=== PATIENT | female | born 1995 | race African-American/Black ===

== ENCOUNTER 2019-01-13 05:09 | Inpatient (IN) | payer OTHER ==
[2019-01-13] MEDS ORDERED: LR 1,000 ML IV PRN (05:27)
[2019-01-13] MEDS ORDERED: hydrALAZINE 20 MG/ML VIAL IVP ONE ×3 (05:44→06:25)
[2019-01-13] MEDS ORDERED: CALCIUM GLUC 10% 1 GM/10 ML VIAL IVP PRN (05:45)
[2019-01-13] MEDS ORDERED: MAGNESIUM SULF 4 GM/WATER 100 ML IV ONE (05:45)
[2019-01-13 05:54] LABS: PLATELET COUNT 196 10^3/uL (150-400)
[2019-01-13] MEDS: Mag Sulf 500 ML IV SCH ×2 (07:15→17:14)
--- NOTE | 2019-01-13 07:15 | GHP ---
[f rep st] HISTORY AND PHYSICAL DATE OF ADMISSION: 01/13/2019 ADMITTING DIAGNOSES: 1. Status post late gestation 30-week . 2. preeclampsia. HISTORY OF PRESENT ILLNESS: The patient is a 23-year-old, G2, P-0-0-1-0 at 30 weeks by ultrasound, who presents from Dr. Todd's and Dr. Farias's office status post late gestation . The patient and her boyfriend flew in from [place] about 3 days ago. The patient underwent standard procedure and received digoxin 2.5 mg, injected directly into pericardia via ultrasound 2 days ago, and then had a #10 laminaria placed followed by five #10 laminarias yesterday. Spontaneous rupture of membranes occurred around 1514 on January 12. Patient was given nifedipine for tocolysis, but progressed to 6 cm and then 10 cm early this morning. The procedure was done under a pudendal block with both sharp curettage and suction under ultrasound guidance revealing a thin stripe at the end of the procedure which was around 0221 this morning. There was minimal blood loss per Dr. Farias who estimated an EBL of 50 cc. Patient is O positive and hematocrit was 38.4. Patient then developed an elevated blood pressure 185/120 post-procedure around 0440. Patient was given oral Labetalol 200 mg. Patient was taken to the hospital by Dr. Farias in his personal vehicle and was brought up here to Labor and Delivery for treatment of preeclampsia. Patient states she has a headache, mild 5/10 and thinks it is mostly due to crying. She declines Tylenol at this time. She denies any visual changes or epigastric/ right upper quadrant pain. Patient states minimal bleeding at this time and denies any cramping or pain. The plan was for patient to fly back to [place] tomorrow with prescriptions for both Flagyl and Cipro for 5 days after the procedure. The patient's boyfriend-David is present with her at this time. PAST OB HISTORY: Prior therapeutic in the 1st trimester. PAST GRANULATOR HISTORY: Age of menarche was 14. Cycles were regular. Patient denies a history of abnormal Pap smears or any exposure to STDs. PAST MEDICAL HISTORY: Remarkable for asthma. PAST SURGICAL HISTORY: Therapeutic . CURRENT MEDICATIONS: Albuterol inhaler, Flagyl, Labetalol, and Zofran. ALLERGIES: No known drug allergies. FAMILY HISTORY: Unremarkable. SOCIAL HISTORY: Patient is here for a late termination from [place] and presents with her boyfriend. Patient denies currently any tobacco, alcohol, illicit drug use. REVIEW OF SYSTEMS: Ten point review of systems negative. Pertinent positives noted in HPI. PHYSICAL EXAMINATION: On admission, blood pressure is 149/83. They were checked serially every 10 minutes and found to be 166/128, 172/125, 169/110, and 168/109. Patient is afebrile. GENERAL: Patient is a well-nourished, well- developed female, alert and oriented x3. No apparent distress. SKIN: Warm, dry without rash. NEURO: Grossly intact. CARDIOVASCULAR: Regular rate and rhythm. LUNGS: Clear to auscultation bilaterally. ABDOMEN: Soft, nontender. Fundus firm 2 below the umbilicus. PELVIC: Minimal bleeding noted. EXTREMITIES: Normal to inspection with no calf tenderness or edema and +1 reflexes bilaterally without clonus. ASSESSMENT/PLAN: Patient is a 23-year-old, G2, P-0-0-1-0, status post late 30- week with preeclampsia 1. Admit to Labor and Delivery. 2. Will check PIH labs. 3. Patient was given 5 mg of hydralazine with a repeat blood pressure 20 minutes later of 160/110. Patient then received 10 mg of IV hydralazine and blood pressures now stable. 4. Avoided Labetalol at this time because patient is asthmatic. Patient was given 200 mg oral labetalol before coming into the hospital by Dr. Farias. 5. Will start magnesium sulfate for seizure prophylaxis; start with 4 g loading dose and then 2 g maintenance. 6. Keep IV fluids at 125 cc an hour. Patient may have 50 cc an hour of ice chips. 7. Strict I's and O's with Amaya catheter. 8. Will continue Flagyl and Cipro per Dr. Farias. /[id number]/MODL MTDD
[2019-01-13] MEDS ORDERED: ALBUTEROL 60 PUFFS/8 GM MDI IH PRN (07:59)
[2019-01-13] MEDS: metroNIDAZOLE 500 MG TAB PO SCH ×2 (09:26→21:09)
[2019-01-13] MEDS: DOCUSATE SODIUM 100 MG CAP PO PRN (09:26)
[2019-01-13] MEDS: CIPROFLOXACIN 500 MG TAB PO SCH ×2 (10:12→20:05)
--- NOTE | 2019-01-13 10:30 | PDMN ---
Medical Necessity Medical necessity: Pt meets inpt criteria per MD order and [facility] [id number], Hypertensive Disorders of . 23 y/o presenting s/p late gestation w/elev BP 185/120 post-procedure and headache, admitted w/ preeclampsia, admit to L&D for close monitoring of BP, mag sulfate gtt, IVF, est LOS>2MN for management of above.
--- NOTE | 2019-01-13 11:34 | OBPP ---
Progress Note Assessment/Plan: Assessment: Post D&E from 30 wks TAB completed 02:20 this am post procedure preeclampsia with severe range HTN now stable on magnesium ( required 2 doses IV hydralazine initially on admit to stabilize) labs normal, P:C ratio .32 asymptomatic o/t mild headache - declines tylenol bleeding minimal Asthma - prn albuterol Plan: on restricted IV/po fluids to 120ml/hr UOP maintaining adeq >60cc/hr 01/13/19 11:29 Subjective/ Course: 01/13/19 11:34 Pt sleeping - easily arousable and reporting mild headache - declines tylenol. No cramping - no nausea/ óscar sips of water. partner asleep on couch. Objective: 01/13/19 05:30 01/13/19 05:30 Patient ABO/Rh O POSITIVE 01/13/19 05:30 Uric Acid 5.4 mg/dL (2.5-6.8) 01/13/19 05:30 Total Bilirubin 0.5 mg/dL (0.1-1.4) 01/13/19 05:30 Conjugated Bilirubin 0.3 mg/dL (0.0-0.5) 01/13/19 05:30 Unconjugated Bilirubin 0.2 mg/dL (0.0-1.1) 01/13/19 05:30 AST 33 IU/L (14-46) 01/13/19 05:30 ALT 19 IU/L (9-52) 01/13/19 05:30 Lactate Dehydrogenase 747 IU/L (313-618) H 01/13/19 05:30 Temp Pulse Resp BP Pulse Ox 37.1 C 75 16 123/73 H 94 01/13/19 09:15 01/13/19 06:20 01/13/19 09:15 01/13/19 10:00 01/13/19 10:00 Uterine Position/Fundal Height: Umbilicus -2 Uterine Tone: Firm Physical Exam - Physical Exam Abdomen: non-tender, soft, other (FF at umb -2, scant lochia) Extremities: non-tender, pedal edema (minimal), other (no DTRs, only 1+ prior to magnesium) Skin: normal color, warm/dry
[2019-01-13] MEDS: ACETAMINOPHEN 325 MG TAB PO PRN (14:05)
[2019-01-14] MEDS: ACETAMINOPHEN 325 MG TAB PO PRN (02:36)
[2019-01-14] MEDS: Mag Sulf 500 ML IV SCH (03:11)
[2019-01-14] MEDS ORDERED: PETROLATUM,WHITE 28.35 GM TUBE TP ONE (08:24)
[2019-01-14] MEDS: metroNIDAZOLE 500 MG TAB PO SCH (08:58)
[2019-01-14] MEDS: CIPROFLOXACIN 500 MG TAB PO SCH (10:00)
[2019-01-14] MEDS: DOCUSATE SODIUM 100 MG CAP PO PRN (10:01)
--- NOTE | 2019-01-14 13:07 | OBPP ---
Progress Note Assessment/Plan: Assessment: 23 yo now , POD1 s/p 28 wk procedure complicated by post- pre-eclampsia. PP Pre-eclampsia: - 24 hrs of PP mag came off at 0630 this AM. - BP's have been normal range this AM, one mild range pressure. - Diuresed well overnight and continues to this AM, sx all improved/resolved. - I do think she'll be appropriate for dc later today after further observation. - Has f/u with OBGYN in [place], [place] "as soon as she gets home". - Labs normal on admission, P:C ratio 0.32 - no repeat needed/ordered. Asthma - prn albuterol Has been continued on Flagyl/Cipro while IP per transferring docs recs, pt has scripts for those for home. Pain well controlled, tolerating diet. Dc home at 1600 if no other concerning sx arise. JM Subjective/ Course: Maame is feeling quite good this AM - reports that her pain is really completely resolved. Very mild GREEN that comes and goes, but overall much improved. Happy to be off magnesium and eating. Denies any other s/sx of evolving PIH. Objective: 01/13/19 05:30 01/13/19 05:30 Patient ABO/Rh O POSITIVE 01/13/19 05:30 Uric Acid 5.4 mg/dL (2.5-6.8) 01/13/19 05:30 Total Bilirubin 0.5 mg/dL (0.1-1.4) 01/13/19 05:30 Conjugated Bilirubin 0.3 mg/dL (0.0-0.5) 01/13/19 05:30 Unconjugated Bilirubin 0.2 mg/dL (0.0-1.1) 01/13/19 05:30 AST 33 IU/L (14-46) 01/13/19 05:30 ALT 19 IU/L (9-52) 01/13/19 05:30 Lactate Dehydrogenase 747 IU/L (313-618) H 01/13/19 05:30 Temp Pulse Resp BP Pulse Ox 36.7 C 74 18 125/79 H 97 01/14/19 09:00 01/14/19 12:05 01/14/19 12:05 01/14/19 12:05 01/14/19 12:05
--- NOTE | 2019-01-14 13:08 | OBGCSDC ---
General Delivery Information - General Info Labs: Patient ABO/Rh O POSITIVE 01/13/19 05:30 Hct 35.8 % (38.0-47.0) L 01/13/19 05:30 - Hospital Course : 01/13/19 11:34 Pt sleeping - easily arousable and reporting mild headache - declines tylenol. No cramping - no nausea/ óscar sips of water. partner asleep on couch.
[2019-01-14 15:43] VITALS: BP 124/70
== END 2019-01-14 16:10 | disposition home or self-care (01) | DRG 776 ==
LOC: FLD 05:09 → OBSVTOIN 05:37
PROVIDERS: ADMIT Obstetrics & Gynecology; ATTEND Obstetrics & Gynecology
DX: O14.95 Unspecified pre-eclampsia, complicating the puerperium (principal)
CPT/HCPCS: J0610; J3475